=== PATIENT | male | born 2005 | race Caucasian/White ===

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

== ENCOUNTER → 2024-11-23 | Outpatient (CLI) | payer BC ==
--- NOTE | 2024-11-23 13:03 | CT ---
EXAMINATION TYPE: CT sinus wo con DATE OF EXAM: 11/23/2024 12:43 PM COMPARISON: CT brain 02/08/2024.. 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 Additional coronal and sagittal reformatted images were submitted for evaluation. Contrast used: none Oral contrast used: none CT DLP: 563 mGycm, Automated exposure control for dose reduction was used. FINDINGS: Frontal sinuses: Normally developed and aerated. Frontal Recess: Clear Maxillary Sinuses: Opacification of the right maxillary sinus with possible extension into the nasal cavity overall the nasal cavity lesion measures at least 39 x 30 x 43 mm. This partially obstructs th e right ostiomeatal complex. The left ostomy a complex is clear with some mild mucosal thickening. Julio Cesar ny spurring along the inferior margin of both the orbits compatible Master cells/osseous spurring. Ethmoid sinuses: Scattered mucosal thickening right worse than left. Right posterior worse than the a nterior. Ethmoidal notch: Unprotected bilateral anterior ethmoidal arteries. Sphenoid sinuses: Normally developed and aerated. There is sellar sphenoid sinus pneumatization witho ut evidence of dehiscence. No dehiscence of carotid canal. No evidence of optic nerve dehiscence wit hin the sphenoid sinus. Onodi cells identified with no dehiscence of the optic nerves. Sphenoethmoida l recesses: Clear. Nasal septum: Slightly displaced anteriorly due to right nasal cavity polyp. Nasal Turbinates: Mucosal thickening with displacement of the middle and inferior turbinates due to t he nasal polyp Mastoid air cells & middle ears: The air cells are clear. The middle ears are grossly unremarkable. Modified Soft tissues & Brain: Partially seen without gross abnormality. Globes are intact. Other: Cribriform plate demonstrates symmetric Keros classification type 2 cribriform plate. No evidence of bony dehiscence of skull base. Lamina papyracea is intact without evidence of remote orbital fracture or orbital prolapse into the e thmoid sinus. IMPRESSION: 1. Right nasal cavity polyp measuring up to 39 x 30 x 43 mm. This contributes to obstructing the rig ht posteromedial complex with complete opacification of the right maxillary sinus. This also displace s the medial wall of the maxillary sinus and the nasal septum. The nasal turbinates are also displace d secondary to this mass. 2. The frontonasal recesses bilaterally are patent. The right sphenoethmoidal recess is opacified an d the left is open. [facility], , 11/23/2024 1:01 PM
== END | disposition home or self-care (01) ==
LOC: RADCTMAIN 12:20
PROVIDERS: ATTEND Otolaryngology
DX: J33.0 Polyp of nasal cavity (principal); R22.0 Localized swelling, mass and lump, head
CPT/HCPCS: 70486

== ENCOUNTER → 2024-11-28 | Outpatient (CLI) | payer BC ==
[2024-11-29 02:52] LABS: Alternaria alternata IgE 1.48 kU/L; Aspergillus fumagatus IgE 0.12 kU/L; Birch IgE 0.24 kU/L; Cat Epith & Dander IgE >100.00 kU/L; Cladosporian herbarum IgE <0.10 kU/L; Cockroach IgE <0.10 kU/L; Dermato. farinae IgE <0.10 kU/L; Dog Dander IgE 6.89 kU/L; Elm IgE 0.25 kU/L; Maple (Box Elder) IgE 0.44 kU/L; Oak IgE 0.34 kU/L
== END | disposition home or self-care (01) ==
LOC: LABWHC1 15:25
PROVIDERS: ATTEND Otolaryngology
DX: L50.0 Allergic urticaria (principal)
CPT/HCPCS: 36415; 82785; 86003